=== PATIENT | male | born 1990 | race Caucasian/White ===

== ENCOUNTER 2021-02-16 01:28 | Emergency (ER) | payer OTHER ==
[~2021-02-16] VITALS: Ht 172.7 cm; Wt 74.8 kg
--- NOTE | 2021-02-16 01:35 | NUR ---
Patient triaged and placed in waiting room. VSS and patient appears in no acute distress at this time. awaiting available bed, and MD notified of need for MSE.
--- NOTE | 2021-02-16 01:40 | NUR ---
PER ADMITTING PT STS FEELING BETTER AND WANT TO LEAVE.PT LWBS
[2021-02-16 01:50] VITALS: BP_SYST 130
[2021-02-16] MEDS ORDERED: LORazepam 2 MG/ML VIAL ONE (02:04)
[2021-02-16] MEDS ORDERED: HALOPERIDOL LACTATE 5 MG/ML VIAL ONE (02:09)
== END 2021-02-16 01:40 | disposition left against medical advice (07) ==
LOC: SED 01:28
DX: F41.9 Anxiety disorder, unspecified (principal); Z53.21 Procedure and treatment not carried out due to patient leaving prior to being seen by health care provider
CPT/HCPCS: J1630; J2060

== ENCOUNTER 2021-03-06 06:04 | Emergency (ER) | payer OTHER ==
[~2021-03-06] VITALS: Ht 172.7 cm; Wt 74.8 kg
[2021-03-06 06:05] VITALS: BP_SYST 149
--- NOTE | 2021-03-06 06:05 | NUR ---
Patient triaged and placed in waiting room. VSS and patient appears in no acute distress at this time., awaiting available bed, and MD notified of need for MSE.
--- NOTE | 2021-03-06 06:37 | NUR ---
ER examining patient in the lobby.
--- NOTE | 2021-03-06 06:50 | NUR ---
Pt taken to Radiology in stable condition
--- NOTE | 2021-03-06 07:30 | NUR ---
DR CANO OUT TO TRIAGE FOR EVALUATION
--- NOTE | 2021-03-06 07:59 | NUR ---
ACCORDING TO WARREN IN LAB, PT IS REFUSING TO HAVE LAB DRAWN UNTIL HE CAN LAY DOWN IN A BED, EXPLAINED THAT HE WILL NOT BE IN A BED ANY TIME SOON.
[2021-03-06 08:34] LABS: BASOPHILS % (AUTO) 0.3 % (0.0-2.0); EOSINOPHILS # (AUTO) 0.1 K/uL (0.0-0.4); EOSINOPHILS % (AUTO) 0.8 % (0.0-4.0); HEMATOCRIT 47.4 % (36-54); HEMOGLOBIN 16.6 g/dL (14.0-18.0); LYMPHOCYTES # (AUTO) 2.3 K/uL (1.0-5.5); LYMPHOCYTES % (AUTO) 31.4 % (20.5-51.5); MEAN CORPUSCULAR HEMOGLOBIN 30 pg (27-31); MEAN CORPUSCULAR HGB CONC 35 % (32-36); MEAN CORPUSCULAR VOLUME 87 fL (79.0-98.0); MONOCYTES # (AUTO) 0.7 K/uL (0.0-1.0); MONOCYTES % (AUTO) 9.3 % (1.7-9.3); NEUTROPHILS # (AUTO) 4.2 K/uL (1.8-7.7); NEUTROPHILS % (AUTO) 58.2 % (40.0-70.0); PLATELET COUNT (AUTO) 250 K/uL (130-430); RED BLOOD CELL COUNT(AUTO) 5.46 MIL/uL (4.2-6.2); RED CELL DISTRIBUTION WIDTH 12.1 % (9.0-15.0); WHITE BLOOD COUNT (AUTO) 7.2 K/uL (4.8-10.8)
[2021-03-06 08:48] LABS: ANION GAP 8 (5-15); CALCIUM 9.1 mg/dL (8.4-11.0); CHLORIDE 99 mmol/L (98-107); CREATININE 0.81 mg/dL (0.55-1.30); GLUCOSE 86 mg/dL (70-99); SODIUM SERUM 135 mmol/L (136-145); UREA NITROGEN, BLOOD 12 mg/dL (8-21)
[2021-03-06 08:49] LABS: GFR AFRICAN AMERICAN 142 mL/min (>90)
[2021-03-06 08:59] LABS: ALANINE AMINOTRANSFERASE 40 U/L (12-78); ALBUMIN 4.5 g/dL (3.4-4.8); ASPARTATE AMINOTRANSFERASE 22 U/L (10-37); TOTAL BILIRUBIN 0.6 mg/dL (0.0-1.0)
--- NOTE | 2021-03-06 09:10 | NUR ---
DR CANO OUT TO SPEAK WITH PT.
[2021-03-06 09:15] VITALS: BP_SYST 131
--- NOTE | 2021-03-06 09:36 | NUR ---
Patient given written and verbal discharge instructions and verbalizes understanding. ER MD discussed with patient the results and treatment provided. Patient in stable condition. ID arm band removed. Rx of NONE given. Patient educated on pain management and to follow up with PMD. Pain Scale 0/10. Opportunity for questions provided and answered. Medication side effect fact sheet provided.
== END 2021-03-06 09:36 | disposition home or self-care (01) ==
LOC: SED 06:04
DX: F41.9 Anxiety disorder, unspecified (principal); R07.89 Other chest pain
CPT/HCPCS: 36415; 71045; 80053; 84484; 85025; 93005; 99285

== ENCOUNTER 2022-01-07 08:59 | Emergency (ER) | payer OTHER ==
[~2022-01-07] VITALS: Ht 172.7 cm; Wt 79.4 kg
[2022-01-07 09:00] VITALS: BP_SYST 145
[2022-01-07] MEDS ORDERED: LORazepam 2 MG/ML VIAL IVP ONE (09:30)
[2022-01-07] MEDS ORDERED: NACL 0.9% 2,000 ML IV ONE (09:30)
[2022-01-07 09:56] LABS: BASOPHILS % (AUTO) 0.4 % (0.0-2.0); EOSINOPHILS % (AUTO) 0.5 % (0.0-4.0); HEMOGLOBIN 15.8 g/dL (14.0-18.0); LYMPHOCYTES # (AUTO) 1.6 K/uL (1.0-5.5); LYMPHOCYTES % (AUTO) 22.9 % (20.5-51.5); MEAN CORPUSCULAR HEMOGLOBIN 31 pg (27-31); MEAN CORPUSCULAR HGB CONC 35 % (32-36); MEAN CORPUSCULAR VOLUME 88 fL (79.0-98.0); MONOCYTES # (AUTO) 0.6 K/uL (0.0-1.0); MONOCYTES % (AUTO) 8.6 % (1.7-9.3); NEUTROPHILS # (AUTO) 4.7 K/uL (1.8-7.7); NEUTROPHILS % (AUTO) 67.6 % (40.0-70.0); PLATELET COUNT (AUTO) 237 K/uL (130-430); RED CELL DISTRIBUTION WIDTH 12.2 % (9.0-15.0); WHITE BLOOD COUNT (AUTO) 6.9 K/uL (4.8-10.8)
[2022-01-07 10:24] LABS: ACETONE, SERUM NEGATIVE (NEGATIVE)
[2022-01-07 10:25] LABS: ANION GAP 9 (5-15); CHLORIDE 101 mmol/L (98-107); CREATININE 0.89 mg/dL (0.55-1.30); GLUCOSE 101 mg/dL (70-99); POTASSIUM 4.2 mmol/L (3.5-5.1); UREA NITROGEN, BLOOD 10 mg/dL (8-21)
[2022-01-07 10:30] LABS: ALANINE AMINOTRANSFERASE 59 U/L (12-78); ALBUMIN 4.4 g/dL (3.4-4.8); ASPARTATE AMINOTRANSFERASE 33 U/L (10-37); TOTAL BILIRUBIN 0.5 mg/dL (0.0-1.0)
[2022-01-07 10:31] LABS: ALCOHOL, BLOOD < 3 mg/dL (<10); GFR AFRICAN AMERICAN 127 mL/min (>90)
[2022-01-07] MEDS ORDERED: LORA-259 PO (10:45)
[2022-01-07 12:24] VITALS: BP_SYST 142
[2022-01-07 12:25] LABS: BARBITURATE, URINE NEGATIVE (NEG <=200); BENZODIAZEPINE, URINE POSITIVE (NEG <=150); METHAMPHETAMINES SCREEN,URINE NEGATIVE (NEG <=500); URINE AMPHETAMINE NEGATIVE (NEG <=500); URINE METHADONE NEGATIVE (NEG <=200)
[2022-01-07 12:26] LABS: CANNABINOID, URINE POSITIVE (NEG <=50); COCAINE, URINE POSITIVE (NEG <=150); OPIATE, URINE NEGATIVE (NEG <=100); PHENCYCLIDINE SCREEN,URINE NEGATIVE (NEG <=25); UR TRICYCLIC ANTIDEPRESSANTS NEGATIVE (NEG <=300); URINE OXYCODONE SCREEN NEGATIVE (NEG <=100); URINE PROPOXYPHENE SCREEN NEGATIVE (NEG <=300)
== END 2022-01-07 12:31 | disposition home or self-care (01) ==
LOC: SED 08:59
DX: F10.239 Alcohol dependence with withdrawal, unspecified (principal); R10.9 Unspecified abdominal pain; R11.0 Nausea; Z79.899 Other long term (current) drug therapy; Y90.6 Blood alcohol level of 120-199 mg/100 ml
CPT/HCPCS: 99285; 96374; 71045; 96361; 80307; 80053; 82009; 82550; 85025; 36415; 93005; G0482; J2060; J7030

== ENCOUNTER 2022-01-08 11:12 | Emergency (ER) | payer OTHER ==
[~2022-01-08] VITALS: Ht 172.7 cm; Wt 79.4 kg
[~2022-01-08 11:12] MED LIST: LORA-259 PO
--- NOTE | 2022-01-08 11:15 | NUR ---
Pt brought by self, A&Ox4, pt presents to ER with anxiety, nausea and headache, pt states he has Hx of panic attacks and anxiety, skin pink and warm, respirations even and unlabored, cap refill <3
[2022-01-08 11:21] VITALS: BP_SYST 152
--- NOTE | 2022-01-08 11:25 | NUR ---
Dr Castelan evaluating patient at bedside
[2022-01-08 12:07] VITALS: BP_SYST 152
--- NOTE | 2022-01-08 12:11 | NUR ---
Patient given written and verbal discharge instructions and verbalizes understanding. ER MD discussed with patient the results and treatment provided. Patient in stable condition. ID arm band removed. No Rx given. Patient educated on pain management and to follow up with PMD. Pain Scale 0/10. Opportunity for questions provided and answered. Medication side effect fact sheet provided.
== END 2022-01-08 12:11 | disposition home or self-care (01) ==
LOC: SED 11:12
DX: F41.9 Anxiety disorder, unspecified (principal); F10.239 Alcohol dependence with withdrawal, unspecified; Z79.899 Other long term (current) drug therapy; Y90.6 Blood alcohol level of 120-199 mg/100 ml
CPT/HCPCS: 99283

== ENCOUNTER 2022-04-24 05:42 | Emergency (ER) | payer OTHER ==
[~2022-04-24] VITALS: Ht 172.7 cm; Wt 79.4 kg
--- NOTE | 2022-04-24 05:53 | NUR ---
Patient to ER bed 7 to gown for evaluation. Side rails up. Report given to Jeremy ALMAZAN(reg).
[2022-04-24 05:54] VITALS: BP_SYST 142
[2022-04-24] MEDS ORDERED: ONDANSETRON 4 MG ODT TAB PO ONE (06:15)
[2022-04-24] MEDS ORDERED: FAMOTIDINE 20 MG TABLET PO ONE (06:15)
[2022-04-24] MEDS ORDERED: MAG-AL HYDROX/SIMETH 30 ML UDC PO ONE (06:15)
[2022-04-24] MEDS ORDERED: ACETAMINOPHEN 500 MG TABLET PO ONE (06:15)
[2022-04-24 06:58] LABS: BASOPHILS % (AUTO) 0.1 % (0.0-2.0); EOSINOPHILS % (AUTO) 0.3 % (0.0-4.0); HEMATOCRIT 41.7 % (36-54); LYMPHOCYTES # (AUTO) 1.1 K/uL (1.0-5.5); LYMPHOCYTES % (AUTO) 9.5 % (20.5-51.5); MEAN CORPUSCULAR HEMOGLOBIN 31 pg (27-31); MEAN CORPUSCULAR HGB CONC 36 % (32-36); MEAN CORPUSCULAR VOLUME 87 fL (79.0-98.0); MONOCYTES # (AUTO) 0.6 K/uL (0.0-1.0); MONOCYTES % (AUTO) 4.9 % (1.7-9.3); NEUTROPHILS # (AUTO) 9.6 K/uL (1.8-7.7); NEUTROPHILS % (AUTO) 85.2 % (40.0-70.0); PLATELET COUNT (AUTO) 196 K/uL (130-430); RED BLOOD CELL COUNT(AUTO) 4.77 MIL/uL (4.2-6.2); RED CELL DISTRIBUTION WIDTH 12.7 % (9.0-15.0); WHITE BLOOD COUNT (AUTO) 11.3 K/uL (4.8-10.8)
[2022-04-24 07:00] LABS: CALCIUM 9.5 mg/dL (8.4-11.0); CREATININE 0.81 mg/dL (0.55-1.30)
[2022-04-24 07:04] LABS: ALBUMIN 4.2 g/dL (3.4-4.8); TOTAL BILIRUBIN 0.9 mg/dL (0.0-1.0)
--- NOTE | 2022-04-24 07:35 | NUR ---
RECEIVED PT FROM MIRIAM ALMAZAN, REPORTS PT CAME IN FOR ABDOMINAL PAIN, MIRIAM ALMAZAN GAVE MEDICATION AND PT VSS.
--- NOTE | 2022-04-24 07:40 | NUR ---
Patient given written and verbal discharge instructions and verbalizes understanding. ER MD discussed with patient the results and treatment provided. Patient in stable condition. ID arm band removed. Patient educated on pain management and to follow up with PMD. Pain Scale 3. Opportunity for questions provided and answered. Medication side effect fact sheet provided.
== END 2022-04-24 09:03 | disposition home or self-care (01) ==
LOC: SED 05:42
DX: R10.13 Epigastric pain (principal); R11.10 Vomiting, unspecified; F10.10 Alcohol abuse, uncomplicated; Z79.899 Other long term (current) drug therapy; Y90.6 Blood alcohol level of 120-199 mg/100 ml
CPT/HCPCS: 99283; 80053; 83690; 85025; 36415; Q0162